=== PATIENT | female | born 1970 | race Hispanic/Latino ===

== ENCOUNTER 2022-09-27 06:52 | Day surgery (SDC) | payer OTHER ==
[2022-09-25 09:50] VITALS: BP 186/91
[2022-09-25 10:05] LABS: BASOPHILS % (AUTO) 1.7 % (0.0-5.0); EOSINOPHILS % (AUTO) 2.1 % (0.0-8.0); HEMATOCRIT 33.1 % (36-48); MEAN CORPUSCULAR HEMOGLOBIN 20.9 pg (27.0-33.0); MEAN CORPUSCULAR HGB CONC 27.8 g/dL (32.0-36.0); MEAN CORPUSCULAR VOLUME 75.2 fL (79-99); MONOCYTES % (AUTO) 6.2 % (3.0-13.0); NEUTROPHILS % (AUTO) 55.6 % (40.0-77.0); PLATELET COUNT (AUTO) 464 K/uL (130-400); RED CELL DISTRIBUTION WIDTH 17.3 % (11.0-15.5); WHITE BLOOD COUNT (AUTO) 7.6 K/uL (4.8-10.8)
[2022-09-25 10:20] LABS: CREATININE 0.7 mg/dL (0.5-1.5); POTASSIUM 3.9 mmol/L (3.5-5.1)
[~2022-09-27] VITALS: Ht 154.9 cm; Wt 94.6 kg
[2022-09-27] VITALS (17 sets, daily range): BP systolic 149–163; BP diastolic 68–89
[~2022-09-27 06:52] MED LIST: DEXAMETHASONE SOD PHOSPHATE 10MG/ML 1ML VIAL IVP SCH; DEXAMETHASONE SOD PHOSPHATE 4 MG/ML 1ML VIAL ONE; LACTATED RINGERS 1000ML 1,000 ML IV ONE; ONDANSETRON 4MG INJ IVP SCH; PANT40TA54 PO; SCOPOLAMINE HYDROBROMIDE 1 EACH ADH..PATCH TD ONE
[2022-09-27] MEDS ORDERED: SCOPOLAMINE HYDROBROMIDE 1 EACH ADH..PATCH TD SCH (07:00)
[2022-09-27] MEDS ORDERED: MIDAZOLAM HCL 1 MG/ML 2ML VIAL ONE (07:34)
[2022-09-27] MEDS ORDERED: PROPOFOL 10 MG/ML 20ML VIAL IV ONE (07:34)
[2022-09-27] MEDS ORDERED: LIDOCAINE PF 100MG/5ML (2%) SYRINGE 5ML ONE (07:34)
[2022-09-27] MEDS ORDERED: FENTANYL CITRATE PF 50 MCG/1 ML 2ML VIAL ONE (07:35)
[2022-09-27] MEDS ORDERED: ROCURONIUM 10MG/1ML SYR 10 MG/ML ML ONE (07:35)
[2022-09-27] MEDS ORDERED: DEXAMETHASONE SOD PHOSPHATE 4 MG/ML 1ML VIAL ONE (08:05)
[2022-09-27] MEDS ORDERED: ONDANSETRON 4MG INJ ONE (08:06)
[2022-09-27] MEDS ORDERED: KETOROLAC 30MG VIAL (30MG/ML) ONE (08:22)
[2022-09-27] MEDS ORDERED: MEPERIDINE-PF 25 MG/ML SYG ONE (09:51)
== END 2022-09-27 10:45 | disposition home or self-care (01) ==
LOC: DAH 06:52
PROVIDERS: ATTEND Obstetrics & Gynecology
DX: N93.8 Other specified abnormal uterine and vaginal bleeding (principal); Z20.822 Contact with and (suspected) exposure to COVID-19; K21.9 Gastro-esophageal reflux disease without esophagitis; G43.909 Migraine, unspecified, not intractable, without status migrainosus; Z98.890 Other specified postprocedural states; Z90.49 Acquired absence of other specified parts of digestive tract; Z82.49 Family history of ischemic heart disease and other diseases of the circulatory system; Z83.3 Family history of diabetes mellitus; Z98.891 History of uterine scar from previous surgery
CPT/HCPCS: 80048; 84703; 85025; 87426; 36415; 58563; A6260; J1100 ×2; A4663; J7030; A4351; A4606; J7120; J3010; J2001; J2250; J2704; J2405 ×2; J1885; J2175; A4215; A4223; A4222; A4221; A4600

== ENCOUNTER → 2023-02-23 | Outpatient (CLI) | payer OTHER ==
[~2023-02-23] MED LIST changes: -DEXAMETHASONE SOD PHOSPHATE 10MG/ML 1ML VIAL IVP SCH; -DEXAMETHASONE SOD PHOSPHATE 4 MG/ML 1ML VIAL ONE; -LACTATED RINGERS 1000ML 1,000 ML IV ONE; -ONDANSETRON 4MG INJ IVP SCH; -SCOPOLAMINE HYDROBROMIDE 1 EACH ADH..PATCH TD ONE
== END | disposition home or self-care (01) ==
LOC: RAH 08:14
PROVIDERS: ATTEND Obstetrics & Gynecology
DX: Z12.31 Encounter for screening mammogram for malignant neoplasm of breast (principal)
CPT/HCPCS: 77067

== ENCOUNTER → 2023-03-20 | Outpatient (CLI) | payer OTHER | END | disposition home or self-care (01) | LOC: RAH 08:59 | PROVIDERS: ATTEND Obstetrics & Gynecology | DX: R59.0 Localized enlarged lymph nodes (principal); R92.2 Inconclusive mammogram | CPT/HCPCS: 76641; 77065 ==